=== PATIENT | male | born 1975 | race Caucasian/White ===

== ENCOUNTER 2023-03-09 09:10 | Emergency (ER) | payer SELFPAY ==
[2023-03-09 09:23] VITALS: BP 118/83; PULSE 73; RESP 20; TEMP 98.1; BMI 29.0
[2023-03-09] MEDS ORDERED: FAMOTIDINE 20 MG/50 ML IVPB 20 MG/50 ML MG IVPB ONE ×2 (10:40→10:46)
[2023-03-09] MEDS ORDERED: MAG HYDROX/AL HYDROX/SIMETH -MYLANTA- ORAL SUSPENSION PO ONE (10:40)
[2023-03-09] MEDS ORDERED: SUCRALFATE 1 GM TABLET (FP) PO ONE (10:41)
[2023-03-09] MEDS ORDERED: SUCRALFATE 1 GM TABLET (FP) ONE (10:46)
[2023-03-09] MEDS ORDERED: MAG HYDROX/AL HYDROX/SIMETH 30 ML UNIT-DOSE CUP ONE (10:46)
[2023-03-09 11:11] LABS: BASO % 0.5 % (0-2.0); HEMATOCRIT 46.6 % (35.4-49); HEMOGLOBIN 15.6 GM/dL (11.7-16.9); LYMPH % 26.6 % (8-40); MCH 28.8 pg (25.7-33.7); MCHC 33.5 g/dl (32.0-35.9); MEAN CELL VOLUME 85.8 fl (80-96); MONO % 7.5 % (3.8-10.2); NEUT % 63.4 % (42.8-82.8); PLATELET COUNT 188 10^3/uL (134-434); RBC 5.43 M/mm3 (4.00-5.60); RDW 14.1 % (11.9-15.9); WHITE BLOOD COUNT 5.6 K/mm3 (4.0-10.0)
[2023-03-09] MEDS ORDERED: LACTATED RINGERS SOLUTION 1000 ML INFUS.BAG IV ONE (11:34)
[2023-03-09 12:12] LABS: POTASSIUM 4.2 mmol/L (3.5-5.1)
[2023-03-09 12:15] LABS: CALCIUM 9.8 mg/dL (8.5-10.1)
[2023-03-09 12:16] LABS: BLOOD UREA NITROGEN 15.2 mg/dL (7-18)
[2023-03-09 12:18] LABS: CREATININE 0.8 mg/dL (0.55-1.3)
[2023-03-09 12:20] LABS: BILIRUBIN,TOTAL 0.7 mg/dL (0.2-1); TOT PROT 7.2 g/dl (6.4-8.2)
== END 2023-03-09 14:27 | disposition home or self-care (01) ==
LOC: JER 09:10
PROC: 3E033GC Introduction of Other Therapeutic Substance into Peripheral Vein, Percutaneous Approach (ICD-10-PCS; principal; 2023-03-09)
DX: R10.13 Epigastric pain (principal); R11.0 Nausea; R19.7 Diarrhea, unspecified
CPT/HCPCS: 36415; 76705-TC; 80053; 83690; 85025; 99284-25